=== PATIENT | female | born 1945 | race Caucasian/White ===

== ENCOUNTER 2016-11-08 10:18 | Day surgery (SDC) | payer OTHER ==
[2016-11-07 11:34] VITALS: BMI 29.2
[2016-11-08 12:58] VITALS: TEMP 98
[2016-11-08 16:57] VITALS: BP 136/69; PULSE 76
== END 2016-11-08 16:57 | disposition home or self-care (01) ==
LOC: JINFUSION 10:18 → EDSTATUS 12:00 → JINFUSION 16:57
PROVIDERS: ATTEND Internal Medicine Nephrology
PROC: 3E0337Z Introduction of Electrolytic and Water Balance Substance into Peripheral Vein, Percutaneous Approach (ICD-10-PCS; principal; 2016-11-08)
PROC: BW24Y0Z Computerized Tomography (CT Scan) of Chest and Abdomen using Other Contrast, Unenhanced and Enhanced (ICD-10-PCS; 2016-11-08)
DX: R59.0 Localized enlarged lymph nodes (principal); N18.9 Chronic kidney disease, unspecified
CPT/HCPCS: 71260-TC; 96360; 96361

== ENCOUNTER 2019-08-12 10:01 | Emergency (ER) | payer OTHER ==
[2019-08-12 10:15] VITALS: BMI 30.5
--- NOTE | 2019-08-12 11:20 | PDOC ---
*Physical Exam - Vital Signs Last Vital Signs Temp Pulse Resp BP Pulse Ox 97.8 F 74 16 144/56 L 95 08/12/19 10:09 08/12/19 10:09 08/12/19 10:09 08/12/19 10:09 08/12/19 10:09 ED Treatment Course - LABORATORY CBC & Chemistry Diagram: 08/12/19 11:36 08/12/19 11:36 Medical Decision Making - Medical Decision Making 08/12/19 11:19 74-year-old female with a history of gout presenting to the emergency department with a complaint of erythema of the lower extremity. Symptoms been present for several days. Pt seen by Midlevel Provider under my direct supervision Pt interviewed and examined GENERAL: Pt is well appearing, awake and alert MUSCULOSKELETAL: tenderness over posterior medial malleolus of left ankle, mild tenderness over medial aspect of left lower legs Swelling noted of the medial malleolus. no tenderness, swelling or erythema of the lateral malleolleus of the left leg SKIN: Warm and dry. Normal capillary refill. erythema noted of the medial aspect of left ankle there is a area of streaking of the left lower leg NEUROLOGICAL: Alert, awake, appropriate. No motor deficits in the lower extremities. Gait is normal without ataxia. Ancillary studies reviewed Laboratory Tests 08/12/19 08/12/19 11:36 11:36 WBC 10.8 H Hgb 16.5 H Hct 50.8 H BUN 51.1 H Creatinine 2.0 H I agree with plan as outlined by Midlevel Provider Will treat for cellulitis Doubt Septic joint as pt is able to range joint without pain, and is ambulatory will treat for dvt Call placed to pt PMD, she requests Xeralto Will follow up with her 08/12/19 12:16 08/13/19 18:41 08/13/19 18:45 Discharge - Discharge Information Problems reviewed: Yes Clinical Impression/Diagnosis: Acute thromboembolism of tibial vein Qualifiers: Laterality: left Qualified Code(s): I82.442 - Acute embolism and thrombosis of left tibial vein Gout Qualifiers: Gout site: ankle Gout etiology: idiopathic Chronicity: chronic Laterality: left Presence of tophus: without tophus Qualified Code(s): M1A.0720 - Idiopathic chronic gout, left ankle and foot, without tophus (tophi) Condition: Stable Disposition: HOME - Additional Discharge Information Prescriptions: Cephalexin Monohydrate [Keflex -] 500 mg PO BID 7 Days #14 capsule Colchicine [Colcrys] 0.6 mg PO DAILY #7 tablet Rivaroxaban [Xarelto] 10 mg PO BID 7 Days #14 tablet Rivaroxaban [Xarelto] 5 mg PO BID 7 Days #14 tablet - Follow up/Referral Referrals: Mony Sheehan MD [Primary Care Provider] - - Patient Discharge Instructions Patient Printed Discharge Instructions: DI for Deep Vein Thrombosis Additional Instructions: Ultrasound of the leg shows blood clot to posterior tibial vein. X-ray of ankle leg is normal and shows no acute pathology. You are being treated for blood clot to the leg on prescribed medication you need to have immediate follow -up with your primary care as treatment plan has been discussed your primary care - Post Discharge Activity
--- NOTE | 2019-08-12 11:44 | PDOC ---
History of Present Illness - General Chief Complaint: Pain Stated Complaint: PAIN IN LT. LEG Time Seen by Provider: 08/12/19 10:56 History Source: Patient Exam Limitations: Clinical Condition - History of Present Illness Initial Comments: 08/12/19 12:09 Patient with past medical history of gout diagnosed as a child 7 years old, urinary deficiency, hypertension and hypothyroidism on meds presented with complaint of 6-day history of redness to medial aspect of left ankle with streaking redness up left leg. Patient report pain to medial aspect of left ankle which feels like a gout attack but never had redness going up the leg. Denies fever, chills, problem with ambulation, numbness or tingling sensation. Denies any other symptoms Is this a multiple visit Asthma Patient?: No Timing/Duration: other (6 days) Past History - Past Medical History Allergies/Adverse Reactions: Allergies Allergy/AdvReac Type Severity Reaction Status Date / Time Sulfa (Sulfonamide Allergy Severe anaphalaxis Verified 08/12/19 10:09 Antibiotics) Home Medications: Ambulatory Orders Aspirin [ASA -] 81 mg PO DAILY 11/08/16 Atenolol [Tenormin -] 100 mg PO BID 11/08/16 Duloxetine HCl [Cymbalta] 60 mg PO DAILY 11/08/16 Febuxostat [Uloric -] 40 mg PO DAILY 11/08/16 Furosemide [Lasix] 20 mg PO DAILY 11/08/16 Levothyroxine [Synthroid -] 150 mcg PO DAILY 11/08/16 Lorazepam [Ativan] 1 mg PO HS PRN 11/08/16 Losartan Potassium 50 mg PO DAILY 11/08/16 Nifedipine [Procardia Xl] 90 mg PO DAILY 11/08/16 [place]-3S/Dha/Epa/Fish Oil/D3 [Fish Oil + D3 Softgel] 1 each PO DAILY 11/08/16 Rosuvastatin Calcium [Crestor] 10 mg PO HS 11/08/16 Vitamin B Complex 1 each PO DAILY 11/08/16 Cephalexin Monohydrate [Keflex -] 500 mg PO BID 7 Days #14 capsule 08/12/19 Cholecalciferol (Vitamin D3) [Vitamin D3] 2,000 unit PO HS 08/12/19 Colchicine [Colcrys] 0.6 mg PO DAILY #7 tablet 08/12/19 Quetiapine Fumarate [Seroquel -] 25 mg PO HS 08/12/19 Rivaroxaban [Xarelto] 5 mg PO BID 7 Days #14 tablet 08/12/19 Rivaroxaban [Xarelto] 10 mg PO BID 7 Days #14 tablet 08/12/19 Tiotropium [place] [Spiriva] 2 puff IH AM 08/12/19 Anemia: No Asthma: No Cancer: No Cardiac Disorders: No CVA: No COPD: No CHF: No Dementia: No Diabetes: No GI Disorders: No Disorders: No HTN: Yes Hypercholesterolemia: Yes Liver Disease: No Seizures: No Thyroid Disease: Yes (hypo) - Surgical History Appendectomy: Yes - Immunization History Immunization Up to Date: Yes - Psycho Social/Smoking Cessation Hx Smoking History: Never smoked If you are a former smoker, when did you quit?: 2010 Information on smoking cessation initiated: No Hx Alcohol Use: No Drug/Substance Use Hx: No Substance Use Type: None Review of Systems - Review of Systems Able to Perform ROS?: Yes Is the patient limited Iraqi proficient: No Constitutional: No: Chills, Fever, Malaise HEENTM: No: Symptoms Reported Respiratory: No: Symptoms reported, See HPI, Cough, Orthopnea, Shortness of Breath, SOB with Exertion, SOB at Rest, Stridor, Wheezing, Productive cough, Hemoptysis, Other Cardiac (ROS): No: Symptoms Reported, See HPI, Chest Pain, Edema, Irregular Heart Rate, Lightheadedness, Palpitations, Syncope, Chest Tightness, Other ABD/GI: No: Symptoms Reported, Nausea, Vomiting Musculoskeletal: Yes: Symptoms Reported, See HPI, Joint Swelling (medial aspect of left ankle), Muscle Pain (left medial lower leg pain) Integumentary: Yes: Symptoms Reported, See HPI, Erythema (medial aspect of left ankle and left lower leg). No: Bruising, Pruritus Neurological: No: Symptoms reported, Numbness, Paresthesia, Tingling, Weakness All Other Systems: Reviewed and Negative *Physical Exam - Vital Signs Last Vital Signs Temp Pulse Resp BP Pulse Ox 97.8 F 74 16 144/56 L 95 08/12/19 10:09 08/12/19 10:09 08/12/19 10:09 08/12/19 10:09 08/12/19 10:09 - Physical Exam 08/12/19 12:01 GENERAL: Well developed, well nourished. Awake and alert. No acute distress. CARDIOVASCULAR: Regular rate and rhythm. No murmurs, rubs, or gallops. PULMONARY: No evidence of respiratory distress. MUSCULOSKELETAL : mild tenderness over posterior medial malleolus of left ankle with mild tenderness over medial aspect of left lower legs with localized swelling over medial malleolus of left ankle. no tenderness to lateral side of ankle or leg. SKIN: Warm and dry. Normal capillary refill. increased redness to medial aspect of left ankle with redness to medial aspect of left lower leg non-continueous streaking redness from left ankle. no increased warmth to site NEUROLOGICAL: Alert, awake, appropriate. No motor deficits in the lower extremities. Gait is normal without ataxia. PSYCHIATRIC: Cooperative. Good eye contact. Appropriate mood and affect. General Appearance: Yes: Nourished, Appropriately Dressed. No: Apparent Distress ED Treatment Course - LABORATORY CBC & Chemistry Diagram: 08/12/19 11:36 08/12/19 11:36 - RADIOLOGY Radiology Studies Ordered: Category Date Time Status ANKLE-LEFT [RAD] Stat Radiology 08/12/19 11:26 Ordered LEG TIB/FIB-LEFT [RAD] Stat Radiology 08/12/19 11:26 Ordered DUPLEX VASCUL US-1 LEG [US] Stat Ultrasound 08/12/19 11:37 Ordered Medical Decision Making - Medical Decision Making 08/12/19 12:13 Patient with past medical history of gout diagnosed as a child 7 years old, urinary deficiency, hypertension and hypothyroidism on meds presented with complaint of 6-day history of redness to medial aspect of left ankle with streaking redness up left leg. Patient report pain to medial aspect of left ankle which feels like a gout attack but never had redness going up the leg. Denies fever, chills, problem with ambulation, numbness or tingling sensation. Denies any other symptoms Exam significant for localized swelling to medial aspect of left ankle with redness to medial aspect of left ankle with redness streaking up medial aspect of left lower leg which is not continuous. No increased warmth to site. No tenderness to lateral aspect of right ankle of leg. Patient ambulating without difficulty. Patient afebrile. Symptoms likely gout attack with cellulitis. CBC, uric acid and ESR are ordered. X-ray of left ankle and lower leg ordered to rule out acute pathology. Duplex ultrasound of left lower extremity ordered to rule out acute vascular pathology. Treat based on lab and imaging results 08/12/19 13:23 Uric acid and CRP mildly elevated. Duplex ultrasound shows DVT of posterior popliteal vein. X-ray of left ankle and leg shows no acute pathology. Call made to patient PCP Dr. Sheehan to discuss treatment plan for DVT of left leg and awaiting callback 08/12/19 14:[address] Spoke to patient PCP Dr. Sheehan who request patient be treated on a 10 mg twice daily Xarelto for a week and switch to 5 mg Xarelto twice daily for another week and follow-up with her in the clinic. Plan discussed with patient patient agrees with plan. Patient also be treated on Keflex antibiotics twice daily for a week for possible cellulitis of left ankle and leg. Patient advised to take home gout medication as prescribed. Patient stable for discharge Discharge - Discharge Information Problems reviewed: Yes Clinical Impression/Diagnosis: Acute thromboembolism of tibial vein Qualifiers: Laterality: left Qualified Code(s): I82.442 - Acute embolism and thrombosis of left tibial vein Gout Qualifiers: Gout site: ankle Gout etiology: idiopathic Chronicity: chronic Laterality: left Presence of tophus: without tophus Qualified Code(s): M1A.0720 - Idiopathic chronic gout, left ankle and foot, without tophus (tophi) Condition: Stable - Additional Discharge Information Prescriptions: Cephalexin Monohydrate [Keflex -] 500 mg PO BID 7 Days #14 capsule Colchicine [Colcrys] 0.6 mg PO DAILY #7 tablet Rivaroxaban [Xarelto] 10 mg PO BID 7 Days #14 tablet Rivaroxaban [Xarelto] 5 mg PO BID 7 Days #14 tablet - Follow up/Referral Referrals: Mony Sheehan MD [Primary Care Provider] - - Patient Discharge Instructions Patient Printed Discharge Instructions: DI for Deep Vein Thrombosis Additional Instructions: Ultrasound of the leg shows blood clot to posterior tibial vein. X-ray of ankle leg is normal and shows no acute pathology. You are being treated for blood clot to the leg on prescribed medication you need to have immediate follow -up with your primary care as treatment plan has been discussed your primary care - Post Discharge Activity
[2019-08-12 12:02] LABS: EOS % 5.3 % (0-4.5); HEMATOCRIT 50.8 % (32.4-45.2); HEMOGLOBIN 16.5 GM/dL (10.7-15.3); LYMPH % 14.1 % (8-40); MCH 27.1 pg (25.7-33.7); MCHC 32.4 g/dl (32.0-36.0); MEAN CELL VOLUME 83.6 fl (80-96); MEAN PLT VOLUME 8.3 fl (7.5-11.1); MONO % 6.6 % (3.8-10.2); PLATELET COUNT 254 K/MM3 (134-434); RBC 6.07 M/mm3 (3.60-5.2); RDW 14.6 % (11.6-15.6); WHITE BLOOD COUNT 10.8 K/mm3 (4.0-10.0)
[2019-08-12 13:23] LABS: BILIRUBIN,TOTAL 0.5 mg/dL (0.2-1); BLOOD UREA NITROGEN 51.1 mg/dL (7-18); CALCIUM 9.6 mg/dL (8.5-10.1); POTASSIUM 4.4 mmol/L (3.5-5.1); TOT PROT 7.8 g/dl (6.4-8.2); URIC ACID 8.1 mg/dL (2.6-7.2)
[2019-08-12 13:28] LABS: INR 0.94 (0.83-1.09); PROTHROMBIN TIME (PATIENT) 11.1 SEC (9.7-13.0)
[2019-08-12 14:42] VITALS: BP 104/55; PULSE 66; TEMP 97.6
== END 2019-08-12 15:15 | disposition home or self-care (01) ==
LOC: JER 10:01
DX: I82.442 Acute embolism and thrombosis of left tibial vein (principal); M1A.0720 Idiopathic chronic gout, left ankle and foot, without tophus (tophi); I10 Essential (primary) hypertension; E03.9 Hypothyroidism, unspecified; E78.00 Pure hypercholesterolemia, unspecified; Z88.2 Allergy status to sulfonamides
CPT/HCPCS: 36415; 73590-TC-LT-FY; 73610-TC-LT-FY; 80053; 84550; 85025; 85610; 85651; 85730; 86140; 93971-TC; 99284-25

== ENCOUNTER → 2019-10-07 | Day surgery (SDC) | payer OTHER ==
--- NOTE | 2019-10-08 15:02 | PATH ---
Surgical Pathology Report Patient Name: FELIPE GANNON [facility]. Rec. #: [id number] /Age/Gender: 1945 (Age: 74) / F Account: [id number] Location: RADIOLOGY [facility] Taken: 10/07/2019 Received: 10/07/2019 Reported: 10/08/2019 Physicians: Patricia Major M.D. Specimen(s) Received A: BREAST, RIGHT, 12:30, ULTRASOUND GUIDED CORE BIOPSY B: BREAST, RIGHT, 11:30, ULTRASOUND GUIDED CORE BIOPSY Clinical History Nonpalpable lesion Mammographic findings, ultrasound findings: Suspicious Right 12:30- 1.38 cm Right 11:30-2.2 cm Final Diagnosis A. BREAST, RIGHT, 12:30, ULTRASOUND GUIDED CORE BIOPSY: INVASIVE DUCTAL CARCINOMA, MODERATELY DIFFERENTIATED, MEASURING AT LEAST 9 MM IN THIS MATERIAL. FOCAL DUCTAL CARCINOMA IN SITU (DCIS), INTERMEDIATE NUCLEAR GRADE, WITH MODERATE NECROSIS, AND ASSOCIATED MICROCALCIFICATIONS. B. BREAST, RIGHT, 11:30, ULTRASOUND GUIDED CORE BIOPSY: BREAST PARENCHYMA WITH FOCAL FLAT EPITHELIAL ATYPIA, STROMAL FIBROSIS, SCLEROSING ADENOSIS, MICROCYSTS, AND ASSOCIATED MICROCALCIFICATIONS. Results of Estrogen Receptor (ER) and Progesterone Receptor ([place]J) studies performed on block "A" at [facility] are as follows: ER (clone [id number] mouse monoclonal antibody by [employer]): >95% nuclear staining with strong intensity (Positive). [place] (clone16 mouse monoclonal antibody by [employer]): >90% nuclear staining with strong intensity (Positive). Comment: Part A, Immunohistochemical stain performed and interpreted at [facility] show the invasive carcinoma is positive for E-cadherin, supportive of ductal phenotype. Results of Her2 (IHC) & Ki-67 studies pending and will be reported separately. Significant findings relayed to Bekah, from Dr. Sheehan's office, 10/08/19. Positive and negative controls (internal if applicable) show appropriate results. Formalin fixation and cold ischemic times are within current ASCO/CAP recommendations for ER, [place] and Her2 testing. . Electronically Signed Mony Ruvalcaba M.D. Addendum Reported: 10/11/2019 Addendum Diagnosis Results of Her2 (IHC) & Ki-67 studies performed on block "A" at [place], [place] ([id number]) are as follows: Her2 IHC (EP3 from [employer], formerly known as [id number], using [employer] Polymer Refine detection kit): 1+ (Negative). Ki-67: ~10% (Low proliferative index). Positive and negative controls (internal if applicable) show appropriate results. Mony Ruvalcaba M.D. Gross Description A. Received in formalin labeled "right 12:30," are 5 jimenez-yellow, cylindrical portions of fibroadipose tissue ranging from 0.7-1.4 cm in length and averaging 0.1 cm diameter. The specimens are submitted in toto in one cassette. B. Received in formalin labeled "right 11:30," are 4 jimenez-yellow, cylindrical portions of fibroadipose tissue ranging from 1.0-1.4 cm in length and averaging 0.1 cm in diameter. The specimens are submitted in toto in one cassette. Time to formalin fixation: Less than one minute Total formalin fixation time: Approximately 9 hours. 10/07/2019 [facility]10/07/2019
== END | disposition home or self-care (01) ==
LOC: JRADUS-SUR 08:23
PROVIDERS: ATTEND Internal Medicine
PROC: 0HBT3ZX Excision of Right Breast, Percutaneous Approach, Diagnostic (ICD-10-PCS; principal; 2019-10-07)
DX: C50.211 Malignant neoplasm of upper-inner quadrant of right female breast (principal); Z17.0 Estrogen receptor positive status [ER+]; N63.12 Unspecified lump in the right breast, upper inner quadrant; N63.11 Unspecified lump in the right breast, upper outer quadrant; N60.31 Fibrosclerosis of right breast; N60.21 Fibroadenosis of right breast; N60.11 Diffuse cystic mastopathy of right breast; N64.89 Other specified disorders of breast
CPT/HCPCS: 19083; 19084; 77065-TC; 87899; 88305-TC; 88342-TC; A4648

== ENCOUNTER 2020-04-05 12:27 | Emergency (ER) | payer OTHER ==
[2020-04-05 12:39] VITALS: BMI 30.2
--- NOTE | 2020-04-05 13:08 | PDOC ---
History of Present Illness - General Chief Complaint: Pain, Acute Stated Complaint: SOB/ABD PAIN Time Seen by Provider: 04/05/20 13:05 History Source: Patient Exam Limitations: No Limitations - History of Present Illness Initial Comments: 04/05/20 13:07 HPI: This is a 74 y/o female with a PMH of gout, HTN, CKD, hypothyroidism, kidney stones, DVT, active breast cancer, and active leukemia presenting to the ED because of constant RLQ abdominal pain that began this morning when she was sitting on the couch. She is unable to characterize the pain, but says it isn't sharp, and was not maximal at onset. The pain gradually worsened, and spread to her RUQ, and she developed nausea but no vomiting. The pain is now 10/10, non- fluctuating, and worse with deep breaths and movement. She is also complaining of accompanying SOB due to the pain, as well as abdominal distention. Denies dysuria, hematuria, chest pain, fever/chills, and current N/V. Previous abdominal surgeries include appendix, hysterectomy, and she has one ovary but isn't sure which. Last BM was friday, denies blood in stool. On chemo and anticoagulation for cancer. ROS: GENERAL/CONSTITUTIONAL: No fever/chills. No weakness. CARDIOVASCULAR: No chest pain Yes SOB due to pain. RESPIRATORY: No cough, wheezing, or hemoptysis. GASTROINTESTINAL: Yes nausea no vomiting, diarrhea or constipation. Yes RLQ and RUQ abdominal pain. GENITOURINARY: No dysuria, frequency, or hematuria. No vaginal discharge. MUSCULOSKELETAL: No joint or muscle swelling or pain. No neck or back pain. SKIN: No rash NEUROLOGIC: No headache, or change in strength/sensation. HEMATOLOGIC/LYMPHATIC: Hx of blood clots, anticoagulated PMH: gout, HTN, CKD, hypothyroidism, kidney stones, DVT, active breast cancer, and active leukemia PSx: appendix, hysterectomy, and she has one ovary but isn't sure which Social Hx: Denies tobacco and etoh Meds: See nurse note. Hydroxyurea, anastrazole Allergies: Sulfa PE: GENERAL: Awake, alert, and fully oriented. Non-toxic but in mild distress. Conversational. HEAD: No signs of trauma EYES: PERRLA, EOMI NECK: Normal ROM, supple, no lymphadenopathy, JVD, or masses LUNGS: Breath sounds equal, clear to auscultation bilaterally. No wheezes, and no crackles HEART: Regular rate and rhythm, normal S1 and S2, no murmurs, rubs or gallops ABDOMEN: Tender in RLQ, RUQ, R. Flank, suprapubic area. Distended No guarding, no rebound. No masses EXTREMITIES: Normal range of motion, no edema. No clubbing or cyanosis. No cords, erythema, or tenderness NEUROLOGICAL: Cranial nerves II through XII grossly intact. Normal speech, normal gait SKIN: Warm, Dry, normal turgor, no rashes or lesions noted. MDM: 04/05/20 13:48 This is a 74 y/o female with a PMH of gout, HTN, CKD, hypothyroidism, kidney stones, DVT, active breast cancer, and active leukemia presenting to the ED because of constant RLQ abdominal pain that began this morning when she was sit ting on the couch. - Pain in RLQ, RUQ and R. flank - Abdomen distended - Afebrile ddx: mesenteric ischemia, AAA, SBO, cholecystitis, kidney stones, pancreatitis - CBC, CMP, trop, lactic acid, lipase - CT abdomen/pelvis w/ oral contrast - Pt with multiple surgical scars on abdomen, concern for bowel obstruction - POCUS unable to identify GB, dilated CBD - Lactic 2.3 - no leukocyosis - Lipase wnl 04/05/20 16:00 CT Abdomen and Pelvis w/ oral contrast: IMPRESSION: Acute ischemia with associated necrosis is noted involving the cecum and ascending colon. Left hepatic lobe portal venous air is seen also consistent with evidence of bowel necrosis. Mild right renal atrophy. The common bile duct is dilated with a 1 cm diameter. No gross interval change is seen in compar natty to a [address] exam which also partially imaged the upper abdomen. The partially imaged lower chest demonstrates emphysematous changes which are probably moderate. A nonspecific 1.2 cm left adrenal nodule is seen very likely representing an adenoma on a statistical basis. Biochemical evaluation is suggested as well as 3 month follow-up MRI or CT. Several mild multilevel thoracolumbar chronic vertebral body compression fractures are noted without bony retropulsion. - Zosyn for coverage - 2L LR - Transfer to [facility] - Pt is okay with plan - Pt still non-toxic in appearance, still with abdominal tenderness in RLQ, RUQ, and suprapubic region 04/05/20 17:00 - Accepted by Dr. Garcia at [facility] Past History - Medical History Allergies/Adverse Reactions: Allergies Allergy/AdvReac Type Severity Reaction Status Date / Time Sulfa (Sulfonamide Allergy Severe anaphalaxis Verified 04/05/20 13:32 Antibiotics) Home Medications: Ambulatory Orders Atenolol [Tenormin -] 100 mg PO BID 11/08/16 Duloxetine HCl [Cymbalta] 60 mg PO DAILY 11/08/16 Furosemide [Lasix] 40 mg PO DAILY 11/08/16 Levothyroxine [Synthroid -] 175 mcg PO DAILY 11/08/16 Losartan Potassium 50 mg PO HS 11/08/16 Rosuvastatin Calcium [Crestor] 10 mg PO HS 11/08/16 Quetiapine Fumarate [Seroquel -] 25 mg PO HS 08/12/19 Allopurinol [Zyloprim -] 100 mg PO HS 04/05/20 Anastrozole [Arimidex -] 1 mg PO HS 04/05/20 Apixaban [Eliquis] 2.5 mg PO BID 04/05/20 Aripiprazole [Abilify -] 2 mg PO DAILY 04/05/20 Bupropion HCl [Bupropion Xl] 300 mg PO DAILY 04/05/20 Umeclidinium Brm/Vilanterol Tr [Anoro Ellipta 62.5-25 Mcg INH] 1 each IH DAILY 04/05/20 Anemia: No Asthma: No Cancer: Yes (BREAST AND BONE) Cardiac Disorders: No CVA: No COPD: No CHF: No Dementia: No Diabetes: No GI Disorders: No Disorders: Yes (CKD) HTN: Yes Hypercholesterolemia: Yes Kidney Stones: Yes Liver Disease: No Psychiatric Problems: Yes (DEPRESSION) Seizures: No Thyroid Disease: Yes (hypo) Other medical history: GOUT - Surgical History Appendectomy: Yes - Immunization History Immunization Up to Date: Yes - Psycho-Social/Smoking History Smoking History: Never smoked If you are a former smoker, when did you quit?: 2010 - Substance Abuse Hx (Audit-C & DAST Scrn) How often the patient has a drink containing alcohol: Never Score: In Men: 4 or > Positive; In Women: 3 or > Positive: 0 Screen Result (Pos requires Nsg. Audit-10AR): Negative In the last yr the pt used illegal drug/Rx for NonMed reason: No Score: Yes response is considered Positive: 0 Screen Result (Positive result requires Nsg. DAST-10): Negative *Physical Exam - Vital Signs Last Vital Signs Temp Pulse Resp BP Pulse Ox 97.9 F 82 20 104/48 L 100 04/05/20 12:36 04/05/20 12:36 04/05/20 12:36 04/05/20 12:36 04/05/20 12:36 Heart Score/ECG Review - ECG Intrepretation Comment:: 04/05/20 18:[address] elevations. T wave inversions in V2 and V3. No previous EKG for comparison. Vent rate 84bpm, SC interval 172ms, QRS 82ms, QT/QTc 382/451ms ED Treatment Course - LABORATORY CBC & Chemistry Diagram: 04/05/20 13:37 04/05/20 13:37 Discharge - Discharge Information Problems reviewed: Yes Clinical Impression/Diagnosis: Abdominal pain Qualifiers: Abdominal location: unspecified location Qualified Code(s): R10.9 - Unspecified abdominal pain Disposition: TRANSFER ACUTE CARE/OTHER HOSP - Admission No - Follow up/Referral Referrals: Mony Sheehan MD [Primary Care Provider] - - Patient Discharge Instructions - Post Discharge Activity
[2020-04-05] MEDS ORDERED: ACETAMINOPHEN 1000 MG/100 ML VIAL (NON FORMULARY) IVPB ONE (13:35)
[2020-04-05] MEDS ORDERED: ACETAMINOPHEN INJECTION 100 ML IVPB ONE (14:02)
[2020-04-05 14:05] LABS: BASO % 0.6 % (0-2.0); EOS % 0.7 % (0-4.5); HEMATOCRIT 39.3 % (32.4-45.2); HEMOGLOBIN 13.6 GM/dL (10.7-15.3); LYMPH % 6.2 % (8-40); MCH 39.7 pg (25.7-33.7); MCHC 34.5 g/dl (32.0-36.0); MEAN CELL VOLUME 115.2 fl (80-96); MEAN PLT VOLUME 7.6 fl (7.5-11.1); MONO % 6.2 % (3.8-10.2); NEUT % 86.3 % (42.8-82.8); PLATELET COUNT 244 K/MM3 (134-434); RBC 3.41 M/mm3 (3.60-5.2); RDW 12.5 % (11.6-15.6); WHITE BLOOD COUNT 8.8 K/mm3 (4.0-10.0)
--- NOTE | 2020-04-05 14:27 | PDOC ---
Documentation entered by Eugenia Pollard SCRIBE, acting as scribe for Garry French MD. Garry French MD: This documentation has been prepared by the Atul rodney Xhesika, SCRIBE, under my direction and personally reviewed by me in its entirety. I confirm that the documentation accurately reflects all work, treatment, procedures, and medical decision making performed by me. Attending Attestation - Resident Resident Name: Otilia Romero - ED Attending Attestation I have performed the following: I have examined & evaluated the patient, The case was reviewed & discussed with the resident, I agree w/resident's findings & plan, Exceptions are as noted - HPI HPI: 04/05/20 13:30 The patient is a 74y/o F with a PMH of HTN, HLD, and hypothyroidism, CKD, DTT on eliquis, leukemia and R breast ca s/p partial mastectomy who presents to the ED with RLQ abdominal pain x1day. Pt reports associated SOB and abdominal distension. Allergies: Sulfa - Physicial Exam PE: 04/05/20 14:25 EXAMINATION CONSTITUTIONAL: Awake and alert, in mild distress HEAD: Normocephalic; atraumatic EYES: PERRL; EOM intact ; ENMT: External appears normal; normal oropharynx NECK: Supple; non-tender; no cervical lymphadenopathy CARD: Normal S1, S2; no murmurs, rubs, or gallops RESP: Normal chest excursion with respiration; breath sounds clear and equal bilaterally; no wheezes, rhonchi, or rales ABD: Soft, non-distended; + No icterus significant right upper quadrant/right lower quadrant tenderness to palpation; No guarding or rebound; decreased breath sounds in all 4 quadrants; no palpable organomegaly, no palpable hernias EXT: Normal ROM in all four extremities; non-tender to palpation; distal pulses intact SKIN: Warm, dry, no rash NEURO: No focal neurological deficiencies. - Medical Decision Making 04/05/20 14:26 Patient is 74-year-old female with multiple comorbidities who presents to the ER with severe right-sided abdominal pain. Differential diagnosis includes SBO versus pancreatitis versus colitis versus cholecystitis versus nephrolithiasis versus pyelonephritis. Will obtain CBC/CMP/UA. Will consider CT of abdomen pelvis with p.o. contrast. Will administer IV fluid and pain meds. Will reassess. Discharge - Discharge Information Problems reviewed: Yes Clinical Impression/Diagnosis: Abdominal pain Qualifiers: Abdominal location: unspecified location Qualified Code(s): R10.9 - Unspecified abdominal pain - Follow up/Referral Referrals: Mony Sheehan MD [Primary Care Provider] - - Patient Discharge Instructions - Post Discharge Activity
[2020-04-05 14:40] LABS: ALBUMIN 3.9 g/dl (3.4-5.0); ALK PHOS 101 U/L (45-117); ANION GAP 10 MMOL/L (8-16); BILIRUBIN,TOTAL 0.8 mg/dL (0.2-1); BLOOD UREA NITROGEN 32.1 mg/dL (7-18); CALCIUM 9.2 mg/dL (8.5-10.1); CHLORIDE 104 mmol/L (98-107); CO2 22 mmol/L (21-32); CREATININE 2.2 mg/dL (0.55-1.3); GLUCOSE,RANDOM 139 mg/dL (74-106); LIPASE 48 U/L (73-393); POTASSIUM 4.1 mmol/L (3.5-5.1); SGOT/AST 20 U/L (15-37); SODIUM 135 mmol/L (136-145); TOT PROT 7.2 g/dl (6.4-8.2)
[2020-04-05 14:42] LABS: SGPT/ALT 20 U/L (13-61)
[2020-04-05 15:08] LABS: ANISOCYTOSIS 2+; MACROCYTOSIS 2+
[2020-04-05] MEDS ORDERED: SODIUM CHLORIDE 0.9% 500 ML INFUS.BAG IV ONE (15:10)
[2020-04-05] MEDS ORDERED: FAMOTIDINE 20 MG/50 ML IVPB 20 MG/50 ML MG IVPB ONE ×2 (15:43→15:49)
[2020-04-05] MEDS ORDERED: PIPERACILLIN/TAZOB 4.5 GM 4.5 GM in DEXTROSE 5%-WATER 100 ML IVPB ONE (16:48)
[2020-04-05] MEDS ORDERED: LACTATED RINGERS SOLUTION 1000 ML INFUS.BAG IV ONE (16:52)
[2020-04-05] MEDS ORDERED: LACTATED RINGERS SOLUTION 1,000 ML/1,000 ML INFUS.BAG IV SCH (17:00)
[2020-04-05] MEDS ORDERED: PIPERACILLIN/TAZOB 4.5 GM 4.5 GM/100 ML BAG IVPB ONE (17:19)
[2020-04-05 17:44] LABS: INR 1.49 (0.83-1.09); PROTHROMBIN TIME (PATIENT) 17.7 SEC (9.7-13.0)
[2020-04-05 17:46] LABS: ACTIVATED PTT 28.4 SECONDS (25.2-36.5)
[2020-04-05 18:49] VITALS: BP 132/112; PULSE 91; TEMP 98
--- NOTE | 2020-04-06 16:55 | EKG ---
Test Reason : Blood Pressure : / mmHG Vent. Rate : 084 BPM Atrial Rate : 084 BPM P-R Int : 172 ms QRS Dur : 082 ms QT Int : 382 ms P-R-T Axes : 043 016 024 degrees QTc Int : 451 ms NORMAL SINUS RHYTHM LOW VOLTAGE QRS CANNOT RULE OUT ANTERIOR INFARCT , AGE UNDETERMINED ABNORMAL ECG NO PREVIOUS ECGS AVAILABLE Confirmed by ODALIS MOHR MD ([id number]) on 04/06/2020 4:55:32 PM Referred By: Confirmed By:ODALIS MOHR MD
== END 2020-04-05 18:59 | disposition short-term general hospital (02) ==
LOC: JER 12:27
PROC: 3E033NZ Introduction of Analgesics, Hypnotics, Sedatives into Peripheral Vein, Percutaneous Approach (ICD-10-PCS; principal; 2020-04-05)
PROC: 3E033GC Introduction of Other Therapeutic Substance into Peripheral Vein, Percutaneous Approach (ICD-10-PCS; 2020-04-05)
DX: R10.9 Unspecified abdominal pain (principal)
CPT/HCPCS: 36415; 71045-TC-FY; 74176-TC; 80053; 82272; 83605; 83690; 84484; 85025; 85610; 85730; 93005; 93010; 99285-25; J0131

== ENCOUNTER 2021-12-10 05:24 | Day surgery (SDC) | payer OTHER ==
[2021-12-07 12:10] VITALS: BMI 29.7
[2021-12-10] MEDS ORDERED: MIDAZOLAM HCL 2 MG/2 ML SINGLE DOSE VIAL ONE ×2 (12:41→12:48)
[2021-12-10] MEDS ORDERED: ceFAZolin SODIUM 1 GM VIAL IVPB ONE (12:45)
[2021-12-10] MEDS ORDERED: ceFAZolin SODIUM 1 GM VIAL ONE (12:47)
[2021-12-10] MEDS ORDERED: ONDANSETRON 4 MG/2 ML VIAL ONE (13:04)
[2021-12-10] MEDS ORDERED: oxyCODONE HCL 5 MG TABLET PO PRN ×2 (13:08)
[2021-12-10] MEDS ORDERED: ONDANSETRON 4 MG/2 ML VIAL IVPUSH PRN (13:08)
[2021-12-10] MEDS ORDERED: LACTATED RINGERS SOLUTION 1,000 ML IV SCH (13:15)
[2021-12-10] MEDS ORDERED: LIDOCAINE HCL 1%, 10 MG/ML (20ML VIAL) INF ONE (13:20)
[2021-12-10] MEDS ORDERED: BUPIVACAINE HCL/PF 0.5% (5MG/ML) 10 ML VIAL IJ ONE (13:21)
[2021-12-10 15:52] VITALS: PULSE 70; TEMP 97.2
[2021-12-10 15:54] VITALS: BP 131/64
== END 2021-12-10 14:35 | disposition home or self-care (01) ==
LOC: JASU-SURG 05:24
PROVIDERS: ATTEND Orthopaedic Surgery
PROC: 0LN50ZZ Release Right Lower Arm and Wrist Tendon, Open Approach (ICD-10-PCS; principal; 2021-12-10 11:30)
DX: M65.4 Radial styloid tenosynovitis [de Quervain] (principal)
CPT/HCPCS: 88304-TC

== ENCOUNTER 2024-07-20 18:09 | Emergency (ER) | payer OTHER ==
[2024-07-20 18:25] VITALS: BP 168/93; PULSE 80; RESP 16; TEMP 98.1; BMI 29.5
[2024-07-20 20:15] LABS: VENOUS O2 SATURATION 68.9 % (70-80); VENOUS PCO2 51.3 mmHg (38-52); VENOUS PH 7.306 (7.310-7.410)
[2024-07-20 20:16] LABS: BASO % 0.6 % (0-2.0); EOS % 1.5 % (0-4.5); HEMATOCRIT 43.2 % (32.4-45.2); HEMOGLOBIN 13.9 GM/dL (10.7-15.3); LYMPH % 14.5 % (8-40); MCH 33.1 pg (25.7-33.7); MCHC 32.1 g/dl (32.0-36.0); MEAN CELL VOLUME 102.9 fl (80-96); MONO % 8.9 % (3.8-10.2); NEUT % 74.5 % (42.8-82.8); PLATELET COUNT 360 10^3/uL (134-434); RDW 15.3 % (11.6-15.6); WHITE BLOOD COUNT 10.6 K/mm3 (4.0-10.0)
[2024-07-20 20:38] LABS: POTASSIUM 4.6 mmol/L (3.5-5.1)
[2024-07-20 20:40] LABS: ALBUMIN 3.9 g/dl (3.4-5.0)
[2024-07-20 20:41] LABS: BLOOD UREA NITROGEN 23.1 mg/dL (7-18)
[2024-07-20 20:44] LABS: CREATININE 1.7 mg/dL (0.55-1.3)
[2024-07-20 20:45] LABS: BILIRUBIN,TOTAL 0.6 mg/dL (0.2-1); TOT PROT 7.4 g/dl (6.4-8.2)
[2024-07-20 20:48] LABS: PHOSPHOROUS 3.3 mg/dL (2.5-4.9)
[2024-07-20 21:00] LABS: ACTIVATED PTT 24.9 SECONDS (25.2-36.5); INR 0.97 (0.83-1.09)
== END 2024-07-20 21:33 | disposition home or self-care (01) ==
LOC: JER 18:09
DX: R79.9 Abnormal finding of blood chemistry, unspecified (principal)
CPT/HCPCS: 36415; 80053; 82803; 83735; 84100; 84443; 85025; 85610; 85730; 86850; 86900; 86901; 93005; 93010; 99284-25

== ENCOUNTER 2024-08-13 15:46 | Emergency (ER) | payer OTHER ==
[2024-08-13 16:16] VITALS: BP 142/86; RESP 18; TEMP 98.6; BMI 29.4
[2024-08-13] MEDS ORDERED: DEXAMETHASONE 4 MG TABLET (FP) ONE (17:32)
[2024-08-13] MEDS ORDERED: guaiFENesin 200 MG/10 ML 10 ML UNIT-DOSE CUPS ONE (17:34)
[2024-08-13] MEDS: BENZONATATE 200 MG CAPSULE PO ONE (17:43)
[2024-08-13] MEDS: guaiFENesin 200 MG/10 ML 10 ML UNIT-DOSE CUPS PO ONE (17:43)
[2024-08-13] MEDS: DEXAMETHASONE 4 MG TABLET (FP) PO ONE (17:43)
[2024-08-13 17:45] VITALS: PULSE 87
[2024-08-13] MEDS ORDERED: AZITHROMYCIN 500 MG TABLET ONE (18:11)
[2024-08-13] MEDS: AZITHROMYCIN 250 MG TABLET PO ONE (18:13)
== END 2024-08-13 18:30 | disposition home or self-care (01) ==
LOC: FER 15:46
DX: J44.1 Chronic obstructive pulmonary disease with (acute) exacerbation (principal); J18.9 Pneumonia, unspecified organism; R05.9 Cough, unspecified; R06.02 Shortness of breath; R11.10 Vomiting, unspecified; R09.81 Nasal congestion; J10.1 Influenza due to other identified influenza virus with other respiratory manifestations; Z20.822 Contact with and (suspected) exposure to COVID-19
CPT/HCPCS: 0241U-QW; 71045-TC-FY; 99284-25